=== PATIENT | male | born 1950 | race Caucasian/White ===

== ENCOUNTER 2017-12-22 10:09 | Inpatient (IN) | payer OTHER ==
[~2017-12-22] VITALS: Ht 175.3 cm; Wt 72.1 kg
--- NOTE | ~2017-12-22 | PATH ---
[facility] [place] [place] [address] PATHOLOGY RPT PROCEDURE Name: ISAÍAS HORNE Room #: 427-P DIS IN M.R.#: [id number] Admission: 12/22/17 Date of : 54 Discharge: 12/28/17 Report #: [id number] Path Case #: [id number] [facility] Accession Number: [id number] . 01 Material submitted: . GASTRIC BX R/O H PYLORI . 01 Clinical history: . Pre-op DX: Abnormal CT, nausea and vomiting Post-op DX: Gastritis R/O H. pylori . 02 Diagnosis: Gastric mucosa, gastric rule out H. pylori, endoscopic biopsy: - Mild reactive gastropathy. - Negative for intestinal metaplasia or atrophy. - Negative for Helicobacter pylori (properly controlled immunohistochemical stain performed). (IUV/db; 12/28/17) LBQ/12/28/2017 . 02 Electronically signed: . Lety Chacon MD, Pathologist NPI- [id number] . 01 Gross description: . Received in formalin labeled "Horne, Isaías, gastric BX R/O H. pylori," are two segments of reynolds soft tissue measuring 0.6 x 0.3 x 0.2 cm in aggregate dimensions and ranging from 0.4 to 0.6 cm in maximum dimension. The specimen is submitted entirely in cassette A1. (DAC; 12/27/2017) XDC/XDC . 02 Pathologist provided ICD-10: K31.9 . 02 CPT . 657119, C25103 Performed at: [address], [place], [place] [id number] MD Jaxon Parnell MD Phone: [phone] Performed at: [address] [id number] MD Lety Chacon MD Phone: [phone]
--- NOTE | ~2017-12-22 | 2DMMODE ---
[facility] [address] [place] [address] 2 D/M-MODE ECHOCARDIOGRAM Name: STEVE HORNE Room #: 427-P [facility] IN M.R.#: [id number] Admission: 12/22/17 Attend Phys: Kevin Golden MD Discharge: Date of : 54 Date of Service: 12/24/17 0955 Report #: [id number] THIS REPORT FOR: //name// APPROVED REPORT Study performed: 12/24/2017 08:02:04 EXAM: Comprehensive 2D, Doppler, and color-flow Echocardiogram Patient Location: Bedside Room #: 427 Status: routine BSA: 1.87 HR: 49 bpm BP: 136/79 mmHg Other Information Study Quality: Technically Difficult Technically limited study due to inability to position patient, lung disease. Indications Bradycardia Fatigue 2D Dimensions LVEF(%): 51.92 (>50%) IVSd: 11.05 (7-11mm) LVOT Diam: 24.34 (18-24mm) LVDd: 50.75 mm PWd: 10.70 (7-11mm) LVDs: 37.20 (25-40mm) Aortic Root: 38.00 mm IVC: 23.00 mm Floyd's LVEF: 51.92 % Volumes Left Atrial Volume (Systole) Single Plane 4CH: 63.89 mL Single Plane 2CH: 62.12 mL LA ESV Index: 41.00 mL/m2 Aortic Valve AoV Peak Thaddeus.: 1.90 m/s AO Peak Gr.: 14.38 mmHg LVOT Max P.62 mmHg LVOT Max V: 1.29 m/s VINAY Vmax: 3.15 cm2 Mitral Valve [facility] [address] [address] 2 D/M-MODE ECHOCARDIOGRAM Name: STEVE HORNE Room #: 427-P [facility] IN [facility].#: [id number] Admission: 12/22/17 Attend Phys: Kevin Golden MD Discharge: Date of : 54 Date of Service: 12/24/17 0955 Report #: [id number] E/A Ratio: 0.7 MV Decel. Time: 240.31 ms MV E Max Thaddeus.: 0.99 m/s MV A Thaddeus.: 1.39 m/s MV PHT: 69.69 ms IVRT: 117.65 ms Pulmonary Valve PV Peak Thaddeus.: 1.05 m/s PV Peak Gr.: 4.37 mmHg Pulmonary Vein P Vein S: 0.66 m/s P Vein A: 0.34 m/s P Vein D: 0.29 m/s P Vein A Dur.: 93.4 msec P Vein S/D Ratio: 2.28 Tricuspid Valve RAP Estimate: 10.00 mmHg Left Ventricle The left ventricle is normal size. There is normal left ventricular wall thickness. The left ventricular systolic function is normal. The left ventricular ejection fraction is within the normal range. LVEF is 55%. Mild diastolic dysfunction is present (impaired relaxation pattern). Right Ventricle The right ventricle is normal size. The right ventricular systolic function is normal. Atria Left atrium is mildly dilated. Right atrium is mildly dilated. Aortic Valve The aortic valve is not well visualized. No aortic regurgitation is present. There is no aortic valvular stenosis. Mitral Valve Mild mitral annular calcification. Mild mitral regurgitation. No evidence of mitral valve stenosis. Tricuspid Valve The tricuspid valve is normal in structure. Trace tricuspid regurgitation. Unable to assess PA pressure. Pulmonic Valve [facility] [address] [place] [address] 2 D/M-MODE ECHOCARDIOGRAM Name: STEVE HORNE Room #: 427-P ADM IN M.R.#: [id number] Admission: 12/22/17 Attend Phys: Kevin Golden MD Discharge: Date of : 54 Date of Service: 12/24/17 0955 Report #: [id number] Pulmonic valve is not well visualized. Great Vessels The aortic root is normal in size. IVC is dilated and collapses >50% with inspiration. Pericardium There is no pericardial effusion. <Conclusion> The left ventricle is normal size. There is normal left ventricular wall thickness. The left ventricular systolic function is normal. Mild diastolic dysfunction is present (impaired relaxation pattern). The right ventricle is normal size. Left atrium is mildly dilated. The aortic valve is not well visualized. There is no aortic valvular stenosis. Mild mitral regurgitation. Trace tricuspid regurgitation. <ELECTRONICALLY SIGNED> By: Christian Hearn MD 12/24/17954 4 4 Christian Hearn MD /INF
--- NOTE | ~2017-12-22 | HC ---
[facility] [place] [address] CONSULTATION Name: STEVE HORNE Room #: 427-P [facility] IN M.R.#: [id number] Admission: 12/22/17 Attend Phys: Kevin Golden MD Discharge: Date of : 54 Report #: [id number] THIS REPORT FOR: //name// CC: Ty Golden DATE OF SERVICE: 12/22/2017 REFERRING PROVIDER: Kevin Golden MD REASON FOR CONSULT: Diarrhea and abdominal pain with distention. HISTORY OF PRESENT ILLNESS: The patient is a 66-year-old male with a past history of paranoid schizophrenia and syncopal episodes, who presented with a 2-day history of severe diarrhea, nausea and abdominal distention. The patient was admitted and was found to have significant hyponatremia and a CT scan of the abdomen and pelvis showed gastric distention as well as significant constipation throughout the colon. For that reason, I was asked to evaluate. PAST MEDICAL HISTORY: Paranoid schizophrenia, tobacco abuse, insomnia, multiple syncopal episodes, and hypercholesterolemia. HOME MEDICATIONS: Omeprazole, clozapine, valproic acid, aspirin, vitamin D, atenolol, simvastatin, clomipramine. ALLERGIES: PROZAC, which causes a RASH. FAMILY HISTORY: Reviewed and noncontributory. SOCIAL HISTORY: The patient smokes 1 pack of cigarettes daily and has done so for several years. He also drinks alcohol weekly and denies illicit drug use. REVIEW OF SYSTEMS: GENERAL: The patient denies nocturnal fevers or chills. HEENT: No change in vision, change in hearing. NECK: No swelling or difficulty swallowing. HEART: No chest pain or palpitations. LUNGS: No cough or shortness of breath. ABDOMEN: Abdominal pain with nausea and diarrhea. GENITOURINARY: No dysuria or hematuria. ENDOCRINE: No polyuria or polydipsia. HEMATOLOGIC: No history of bleeding or easy bruising. EXTREMITIES: No history weakness or limited range of motion. NEUROLOGIC: No history of syncope or near syncopal episodes. SKIN AND INTEGUMENT: No history of abnormal lesions or moles. PSYCHIATRIC: No history of anxiety, but does have a diagnosis of paranoid [facility] [address] [place] [address] CONSULTATION Name: STEVE HORNE Room #: 427-P [facility] IN M.R.#: [id number] Admission: 12/22/17 Attend Phys: Kevin Golden MD Discharge: Date of : 54 Report #: [id number]. PHYSICAL EXAMINATION: VITAL SIGNS: Temperature 97.7, pulse 50, respirations 12, blood pressure 129/67. He is 5 feet 9 inches tall and weighs 159 pounds. GENERAL: He is somnolent, but arouses with stimulation, in no acute distress. HEENT: Normocephalic, atraumatic. Pupils equal, round, reactive to light. NECK: Supple, without lymphadenopathy. Trachea midline. HEART: Regular rate and rhythm. LUNGS: Clear to auscultation bilaterally. GASTROINTESTINAL: Abdomen is soft, moderately distended in the upper abdomen. No tenderness to palpation. He has hypoactive bowel sounds. No guarding, no rebound, no peritoneal signs or symptoms. GENITOURINARY: Normal external male genitalia. EXTREMITIES: No clubbing, cyanosis or edema. NEUROLOGIC: Cranial nerves 2-12 are grossly intact. PSYCHIATRIC: Normal mood and affect. SKIN AND INTEGUMENT: No abnormal lesions or moles. LABORATORY AND X-RAY DATA: CBC shows white blood cell count of 10.6 thousand; hemoglobin 12.7; platelets 160,000. Creatinine is 0.8. Liver function enzymes normal. Chest x-ray shows cardiomegaly. Urinalysis negative. Abdominal x-rays as well as CT scan of the abdomen and pelvis shows gastric distention as well as constipation throughout the colon. Lactic acid 0.7. Troponins negative. ASSESSMENT AND PLAN: A 66-year-old male with paranoid schizophrenia, on medication, who presents with a 2-day history of diarrhea and nausea, where he is found to be hyponatremic and imaging study shows significant constipation and gastric distention. The patient has already had an NG tube placed for decompression. I recommend continuation of bowel rest with NG tube decompression for his gastric distention. The patient will benefit from Gastroenterology consult for evaluation of proper bowel regimen as the patient may necessitate colonoscopy as well. At this time, there are no acute general surgical issues. I sincerely appreciate this consult. I will follow along while he is hospitalized and leave any further recommendations in the patient's chart as appropriate. <ELECTRONICALLY SIGNED> By: Rajesh Tejada MD, FACS 12/23/17 1429 0931 1002 Rajesh Tejada MD, FACS /nt
--- NOTE | ~2017-12-22 | HC ---
[facility] [place] [address] [place] [address] [place] [address] CONSULTATION Name: STEVE HORNE Room #: 427-P [facility] IN M.R.#: [id number] Admission: 12/22/17 Attend Phys: Kevin Golden MD Discharge: 12/28/17 Date of : 54 Report #: [id number] THIS REPORT FOR: //name// CC: Ty Golden DATE OF SERVICE: 12/27/2017 HISTORY OF PRESENT ILLNESS: The patient is a 66-year-old white male with a history of paranoid schizophrenia, lives on his own with sister closely involved. He was admitted with hyponatremia, gastroenteritis, urinary retention, bradycardia, and insomnia. Psychiatry had seen him. He apparently was taken off his prior clonazepam. He was noted to have nausea, vomiting, and was diagnosed with an ileus. He underwent an EGD on 12/26/2017 revealing mild gastritis and hiatal hernia. He had an NG tube in place, which has now been removed. He has been restarted on a diet. This is a regular diet. Given Ambien for his insomnia. He is noted to have generalized weakness with medical complexity and we are seeing him in rehabilitation medicine consultation. PAST MEDICAL HISTORY: Includes a prior history of syncope, which has been stable on atenolol. He has the paranoid schizophrenia as noted above. He has a history of BPH. Elevated cholesterol. History of some cigar smoking, noted to be 20 cigars a day. Apparently, he smokes, [employer] and he feels it helps take away some of his anxiety. Weekly alcohol use, a couple of beers when he goes out to eat. ALLERGIES: FLUOXETINE FROM PROZAC APPARENTLY CAUSING A RASH. SOCIAL HISTORY: Lives alone in an apartment one step, 12 inside. No gait aids, does his cooking and laundry, has an involved sister. REVIEW OF SYSTEMS: No current complaints of chest pain, shortness of breath or abdominal discomfort. He notes the nausea is improved. He is attempting to try to eat a regular diet. Did not offer any complaints of any focal extremity pain complaints. PHYSICAL EXAMINATION: GENERAL: A 66-year-old white male in no obvious distress. VITAL SIGNS: Last recorded temperature 97.9, pulse 60, respirations 20, blood pressure 132/83. He has male pattern frontal balding. NEUROLOGIC: He is alert. Decreased eye contact, follows basic commands without difficulty. Pleasant. Facies appeared symmetric. Functional range of motion of both upper extremities. Strength is grade 4-/5. DTRs are trace to 1. Lower extremities, no focal calf swelling. Functional range of motion with strength grade 4- to 3+/5. DTRs are trace to 1. He was only able to transfer sit to stand with mod assist and he was able to ambulate 3 feet and then a little [facility] [address] [place] [address] CONSULTATION Name: STEVE HORNE Room #: 427-P DIS IN M.R.#: [id number] Admission: 12/22/17 Attend Phys: Kevin Golden MD Discharge: 12/28/17 Date of : 54 Report #: [id number] longer distance with mod assist with a front-wheeled walker. Does have some decreased balance secondary to retropulsion with a posterior trunk lean. He does have some thoracic kyphosis noted. ASSESSMENT: A 66-year-old white male with the following problem list: 1. Medical complexity with generalized debilitation. 2. Ileus appears to be improving. NG tube is out. EGD shows hiatal hernia and mild gastritis. 3. Paranoid schizophrenia. 4. Benign prostatic hypertrophy with Flomax. 5. Hyperlipidemia. 6. Constipation. 7. Tobacco abuse, smokes at a minimum of 20 cigars per day ([employer]). PLAN: We are considering the patient for a possible acute [address] [place] [address] inpatient rehabilitation stay. We will have to see if he meets diagnostic criteria and functional criteria. At this point, we will be glad to follow along with you. <ELECTRONICALLY SIGNED> By: Leonard Tao MD 01/01/18 0820 1243 1838 Leonard Tao MD /nt
--- NOTE | ~2017-12-22 | EKG ---
[facility] [place] [address] [place] [address] ELECTROCARDIOGRAM REPORT Name: STEVE HORNE Room #: REG APRIL Olivares#: [id number] Admission: 12/22/17 Attend Phys: Discharge: Date of : 54 Report #: [id number] THIS REPORT FOR: //name// [facility] ED Test Date: 2017-12-22 Test Time: 10:20:52 Pat Name: STEVE HORNE Department: Room: Gender: Trust Manager: [facility] : 1950 Requested By: Stephanie Tompkins Order Number: [id number] MD: Yobany Howard Measurements Intervals [place] Rate: 49 P: 64 ID: [id number] QRS: 52 QRSD: 103 T: 69 QT: 420 QTc: 380 Interpretive Statements Sinus bradycardia Borderline T wave abnormalities Compared to ECG 07/19/2014 07:05:19 T-wave abnormality now present Electronically Signed On 12-22-2017 11:01:09 CDT by Yobany Howard [email or web address] <ELECTRONICALLY SIGNED> By: Yobany Howard MD, [facility] 12/22/17 1101 1020 1020 Yobany Howard MD, FACC /EPI
[~2017-12-22 10:09] MED LIST: ASPIR 8181 MG PO; CLOZAPINE ODT100 MG PO; CLOZAPINE100 M1 PO; CLOZARIL; CLOZARIL25 MG PO; OMEPRAZOLE10 MG PO; SIMVASTATIN40 MG PO; TENORMIN25 MG PO; VALPROIC ACID250 MG PO; VITAMIN D1000 UNI1 PO; VITAMIN D400 UNI1; ZOCOR 10 MG TAB10 M1
[2017-12-22 10:10] VITALS: BP 138/74
[2017-12-22 10:33] LABS: ABSOLUTE NEUTROPHILS 8.6 thou/uL (1.4-8.2); BASOPHILS 0.2 % (0.0-2.0); EOSINOPHILS 0.4 % (0.0-3.0); HEMATOCRIT 34.6 % (42.0-52.0); HEMOGLOBIN 12.7 gm/dL (14.0-18.0); LYMPHOCYTES 10.2 % (24.0-44.0); MCHC 36.8 g/dL (28.0-37.0); MCV 87.1 fL (80.0-100.0); MONOCYTES 7.4 % (1.0-8.0); PLATELET COUNT 160 thou/uL (150-400); POLYS 81.8 % (36.0-66.0); RBC 3.97 mil/uL (4.50-6.00); RDW 13.2 % (10.5-14.5); WBC 10.6 thou/uL (4.0-11.0)
[2017-12-22 10:40] LABS: ANION GAP 6 mmol/L (7-16); BUN 6 mg/dL (7-18); CALCIUM 8.8 mg/dL (8.5-10.1); CHLORIDE 93 mmol/L (98-107); CO2 26 mmol/L (21-32); CREATININE 0.8 mg/dL (0.7-1.3); GLUCOSE 126 mg/dL (74-106); POTASSIUM 3.9 mmol/L (3.5-5.1); SODIUM 125 mmol/L (136-145)
[2017-12-22] MEDS ORDERED: OMEPRAZOLE 20 M20 M1 PO (10:47)
[2017-12-22 10:49] LABS: ALBUMIN 3.7 g/dL (3.4-5.0); SGOT 19 U/L (15-37); SGPT 35 U/L (30-65); TOTAL BILIRUBIN 1.2 mg/dL (<0.1-1.0); TOTAL PROTEIN 6.5 g/dL (6.4-8.2); TROPONIN-I <0.06 ng/mL (<0.06)
[2017-12-22] MEDS ORDERED: CLOMIPRAMINE HC25 M2 PO (10:52)
[2017-12-22 10:53] VITALS: BP 129/67
[2017-12-22 10:55] LABS: URINE BILIRUBIN NEGATIVE (Negative); URINE BLOOD NEGATIVE (Negative); URINE CLARITY CLEAR; URINE COLOR YELLOW; URINE GLUCOSE-RANDOM* NEGATIVE (Negative); URINE KETONES NEGATIVE (Negative); URINE LEUKOCYTES-REFLEX NEGATIVE (Negative); URINE NITRITE-REFLEX NEGATIVE (Negative); URINE PROTEIN (DIPSTICK) NEGATIVE (Negative); URINE SPECIFIC GRAVITY <= 1.005 (1.005-1.035); URINE UROBILINOGEN 0.2 E.U./dl (0.2-1.0)
[2017-12-22 13:06] LABS: URINE CREATININE-RANDOM* <13 mg/dL; URINE SODIUM-RANDOM* 8 mmol/L
[2017-12-22 13:12] LABS: APTT 39.5 Seconds (24.5-32.8); PROTIME 10.6 Seconds (9.3-11.4)
[2017-12-22 19:48] LABS: CALCIUM 8.6 mg/dL (8.5-10.1); CREATININE 0.7 mg/dL (0.7-1.3); POTASSIUM 3.8 mmol/L (3.5-5.1)
[2017-12-22 20:30] VITALS: BP 115/59
[2017-12-23 04:30] VITALS: BP 128/62
[2017-12-23 06:31] LABS: HEMATOCRIT 33.7 % (42.0-52.0); HEMOGLOBIN 12.3 gm/dL (14.0-18.0); MCH 32.4 pg (26.0-34.0); MCHC 36.5 g/dL (28.0-37.0); MCV 88.7 fL (80.0-100.0); RBC 3.8 mil/uL (4.50-6.00); RDW 12.9 % (10.5-14.5); WBC 7.5 thou/uL (4.0-11.0)
[2017-12-23 06:43] LABS: CALCIUM 8.6 mg/dL (8.5-10.1); CREATININE 0.8 mg/dL (0.7-1.3); POTASSIUM 3.7 mmol/L (3.5-5.1)
[2017-12-23 09:45] VITALS: BP 125/70
[2017-12-23 16:45] VITALS: BP 140/71
[2017-12-23 21:00] VITALS: BP 128/75
[2017-12-24 03:54] VITALS: BP 136/79
[2017-12-24 05:50] LABS: ABSOLUTE NEUTROPHILS 8.8 thou/uL (1.4-8.2); BASOPHILS 0.3 % (0.0-2.0); EOSINOPHILS 0.3 % (0.0-3.0); HEMATOCRIT 35.3 % (42.0-52.0); HEMOGLOBIN 12.5 gm/dL (14.0-18.0); LYMPHOCYTES 9.3 % (24.0-44.0); MCH 31.9 pg (26.0-34.0); MCHC 35.5 g/dL (28.0-37.0); MCV 89.9 fL (80.0-100.0); MONOCYTES 11.3 % (1.0-8.0); PLATELET COUNT 140 thou/uL (150-400); POLYS 78.8 % (36.0-66.0); RBC 3.93 mil/uL (4.50-6.00); RDW 13.4 % (10.5-14.5); WBC 11.2 thou/uL (4.0-11.0)
[2017-12-24 06:00] LABS: CALCIUM 8.7 mg/dL (8.5-10.1); CREATININE 0.8 mg/dL (0.7-1.3); MAGNESIUM 2.1 mg/dL (1.8-2.4); POTASSIUM 3.5 mmol/L (3.5-5.1)
[2017-12-24 06:31] LABS: AMYLASE 39 U/L (25-115); FOLIC ACID 11.7 ng/mL (8.6-58.9); LIPASE 203 U/L (73-393); TSH 3.643 uIU/mL (0.358-3.740)
[2017-12-24 07:47] VITALS: BP 146/70
[2017-12-24 13:08] LABS: URINE OSMOLALITY* 55 (())
[2017-12-24 16:18] VITALS: BP 141/79
[2017-12-24 20:00] VITALS: BP 149/80
[2017-12-25 04:11] VITALS: BP 130/63
[2017-12-25 06:07] LABS: HEMATOCRIT 31.4 % (42.0-52.0); HEMOGLOBIN 11.4 gm/dL (14.0-18.0); MCH 32.6 pg (26.0-34.0); MCHC 36.4 g/dL (28.0-37.0); MCV 89.5 fL (80.0-100.0); PLATELET COUNT 123 thou/uL (150-400); WBC 8.8 thou/uL (4.0-11.0)
[2017-12-25 06:25] LABS: ALBUMIN 2.9 g/dL (3.4-5.0); CALCIUM 8.4 mg/dL (8.5-10.1); CREATININE 0.8 mg/dL (0.7-1.3); MAGNESIUM 1.9 mg/dL (1.8-2.4); POTASSIUM 3.8 mmol/L (3.5-5.1)
[2017-12-25 08:44] LABS: ABSOLUTE NEUTROPHILS 6.1 thou/uL (1.4-8.2); PLATELET ESTIMATE NORMAL
[2017-12-25 09:12] VITALS: BP 123/64
[2017-12-25 11:11] LABS: UREA NITROGEN-RANDM URINE 62 mg/dL (Not Estab.)
[2017-12-25 15:22] VITALS: BP 132/61
[2017-12-25 20:00] VITALS: BP 118/64
[2017-12-26 04:31] VITALS: BP 134/71
[2017-12-26 04:33] LABS: HEMATOCRIT 31.4 % (42.0-52.0); HEMOGLOBIN 11.4 gm/dL (14.0-18.0); MCH 32.2 pg (26.0-34.0); MCHC 36.2 g/dL (28.0-37.0); MCV 89.2 fL (80.0-100.0); PLATELET COUNT 116 thou/uL (150-400); RBC 3.52 mil/uL (4.50-6.00); RDW 13.2 % (10.5-14.5); WBC 5.1 thou/uL (4.0-11.0)
[2017-12-26 04:45] LABS: ALBUMIN 2.8 g/dL (3.4-5.0); CALCIUM 8.1 mg/dL (8.5-10.1); CREATININE 0.8 mg/dL (0.7-1.3); MAGNESIUM 1.9 mg/dL (1.8-2.4); POTASSIUM 4.1 mmol/L (3.5-5.1); TOTAL BILIRUBIN 0.8 mg/dL (<0.1-1.0); TOTAL PROTEIN 5.9 g/dL (6.4-8.2)
[2017-12-26 07:18] LABS: ABSOLUTE NEUTROPHILS 3.3 thou/uL (1.4-8.2); METAMYELOCYTES 2 %
[2017-12-26 08:04] VITALS: BP 124/62
[2017-12-26 20:00] VITALS: BP 128/79
[2017-12-27 04:00] VITALS: BP 135/82
[2017-12-27 05:44] LABS: HEMATOCRIT 33.9 % (42.0-52.0); HEMOGLOBIN 12.1 gm/dL (14.0-18.0); MCH 31.8 pg (26.0-34.0); MCHC 35.9 g/dL (28.0-37.0); MCV 88.5 fL (80.0-100.0); PLATELET COUNT 137 thou/uL (150-400); RBC 3.83 mil/uL (4.50-6.00); RDW 12.9 % (10.5-14.5); WBC 8.1 thou/uL (4.0-11.0)
[2017-12-27 06:10] LABS: CALCIUM 8.3 mg/dL (8.5-10.1); CREATININE 0.8 mg/dL (0.7-1.3); POTASSIUM 3.8 mmol/L (3.5-5.1)
[2017-12-27 07:50] VITALS: BP 132/83
[2017-12-27 08:37] LABS: ABSOLUTE NEUTROPHILS 4.9 thou/uL (1.4-8.2); PLATELET ESTIMATE NORMAL
[2017-12-27 20:00] VITALS: BP 104/66
[2017-12-28 04:00] VITALS: BP 113/71
[2017-12-28] MEDS ORDERED: PANTOPRAZOLE SO40 M1 PO (16:43)
[2017-12-28] MEDS ORDERED: BISAC-EVAC10 MG RECTAL (16:43)
[2017-12-28] MEDS ORDERED: MELATONIN5 M1 PO (16:43)
[2017-12-28] MEDS ORDERED: MIRALAX17 GM PO (16:43)
[2017-12-28] MEDS ORDERED: HOME MEDICATION PO (16:43)
[2017-12-28] MEDS ORDERED: FLOMAX0.4 MG PO (16:43)
[2017-12-28] MEDS ORDERED: OLANZAPINE ODT5 MG PO (16:43)
[2017-12-28] MEDS ORDERED: ONDANSETRON HCL4 M1 IV PUSH (16:43)
[2017-12-28] MEDS ORDERED: COLACE 100 MG100 MG PO (16:43)
== END 2017-12-28 17:49 | DRG 388 ==
LOC: ER 10:09 → EROBS 11:35 → 4E 11:35 → ER 12:14 → 4E 12:14 → ENTRNSPT 12-28 17:13 → 4E 12-28 17:49
PROVIDERS: Hospitalist; Internal Medicine; Physician Assistant
PROC: 0D9680Z Drainage of Stomach with Drainage Device, Via Natural or Artificial Opening Endoscopic (ICD-10-PCS; principal; 2017-12-22)
PROC: 0DB68ZX Excision of Stomach, Via Natural or Artificial Opening Endoscopic, Diagnostic (ICD-10-PCS; 2017-12-26)
DX: K56.7 Ileus, unspecified (principal); E43 Unspecified severe protein-calorie malnutrition; E87.1 Hypo-osmolality and hyponatremia; F20.0 Paranoid schizophrenia; K29.60 Other gastritis without bleeding; K52.9 Noninfective gastroenteritis and colitis, unspecified; E78.00 Pure hypercholesterolemia, unspecified; R53.81 Other malaise; R35.0 Frequency of micturition; F17.210 Nicotine dependence, cigarettes, uncomplicated; K31.89 Other diseases of stomach and duodenum; E86.0 Dehydration; R33.9 Retention of urine, unspecified; R00.1 Bradycardia, unspecified; G47.00 Insomnia, unspecified; K59.09 Other constipation; E78.5 Hyperlipidemia, unspecified; D50.9 Iron deficiency anemia, unspecified; Z60.2 Problems related to living alone; N40.1 Benign prostatic hyperplasia with lower urinary tract symptoms; R63.4 Abnormal weight loss; K44.9 Diaphragmatic hernia without obstruction or gangrene; R53.83 Other fatigue; Z88.8 Allergy status to other drugs, medicaments and biological substances; Z79.899 Other long term (current) drug therapy; Z86.010 Personal history of colon polyps; Z68.23 Body mass index [BMI] 23.0-23.9, adult
CPT/HCPCS: 10183; 62110; 62900; 70005

== ENCOUNTER 2017-12-28 14:41 | Inpatient (IN) | payer OTHER ==
[~2017-12-28] VITALS: Ht 175.3 cm; Wt 79.2 kg
--- NOTE | ~2017-12-28 | H ---
[facility] [place] [address] HISTORY AND PHYSICAL Name: STEVE HORNE Room #: 512-P [facility] IN M.R.#: [id number] Admission: 12/28/17 Attend Phys: Leonard Tao MD Discharge: 01/03/18 Date of : 54 Report #: [id number] THIS REPORT FOR: //name// CC: Leonard Garrettlap DATE OF SERVICE: 12/28/2017 HISTORY AND PHYSICAL/POSTADMISSION PHYSICIAN EVALUATION HISTORY OF PRESENT ILLNESS: This is a 67-year-old white male who was originally admitted to [facility] on 12/22/2017 with hyponatremia, gastroenteritis, urinary retention and bradycardia. The patient has a prior history of paranoid schizophrenia. He also was noted to have insomnia and was placed on Ambien. Psychiatry has been involved and his clozapine has been reduced. He had problems with nausea and vomiting and underwent an EGD diagnosed with mild gastritis and hiatal hernia on 12/26/2017. He was noted to have ileus, which has improved. Urology has been involved with his urinary retention and he is on Flomax and they are recommending a voiding trial. Bowels improved and is more ambulatory. He has had a significant decline functionally from his premorbid status and has now been admitted for acute in-hospital inpatient rehabilitation. PAST MEDICAL HISTORY: Includes paranoid schizophrenia, diagnosed in 1980, history of syncope, noted to be improved/stable on atenolol, history of cigar smoking, elevated cholesterol. ALLERGIES: PROZAC/FLUOXETINE. HABITS: Noted to smoke 20 cigars a day. Apparently it helps with his anxiety. He smokes [employer] per report. He will have occasional beers when he goes out to eat as far as alcohol usage. SOCIAL HISTORY: Lives alone in an apartment one step, 12 inside. Did not utilize assistive devices premorbidly. He has an involved sister. REVIEW OF SYSTEMS: No complaints of chest pain, shortness of breath and abdominal discomfort. PHYSICAL EXAMINATION: GENERAL: This is a 67-year-old white male in no obvious distress. VITAL SIGNS: Last recorded temperature 36.8, pulse 71, respirations 18 and blood pressure 115/68. Sleepy, but does arouse. HEENT: Facies appeared symmetric. The patient was seen earlier. CHEST: Sounded clear to auscultation. CARDIOVASCULAR: Regular rate and rhythm. [facility] [address] [place] [address] HISTORY AND PHYSICAL Name: STEVE HORNE Room #: 512-P [facility] IN M.R.#: [id number] Admission: 12/28/17 Attend Phys: Leonard Tao MD Discharge: 01/03/18 Date of : 54 Report #: [id number] ABDOMEN: Bowel sounds positive, nontender. GENITOURINARY AND RECTAL: He does have the indwelling Ibrahim catheter. EXTREMITIES: Functional range of motion of the upper extremities. Strength is grade 4-/5. DTRs are trace to 1. Lower extremities, no focal calf swelling, functional range of motion, strength is grade 3+ to 4-/5. DTRs are trace to 1. Bed mobility has been standby assistance; transfers, contact to min assist and he has been ambulating a short distance. He needs assistance. ASSESSMENT: This is a 67-year-old white male with the following problem list: 1. Medical complexity with generalized debilitation. 2. Nausea, vomiting, diarrhea improved with hiatal hernia, mild gastritis and noted colonic ileus. 3. Paranoid schizophrenia. Psychiatry involved. 4. Urinary retention. Has Ibrahim catheter as he is starting to do better with functional mobility would like to remove catheter as was recommended by Urology for a trial. 5. Hyperlipidemia. 6. Tobacco use minimum of 20 cigars a day. PLAN: The patient is admitted for acute in-hospital inpatient rehabilitation. From a postadmission physician evaluation perspective, there are no relevant changes since the preadmission screening. Please see the above review of prior and current medical and functional conditions and comorbidities. Please see the patient's previous and current functional status. As far as risk of complications, the patient has multiple medical comorbidities as noted above. Initial plan of care involves the interdisciplinary acute inpatient rehabilitation program with the goal of maximizing the patient's functional independence, so that he can hopefully return back to his prior living situation. Measurable functional goals would be for the patient to become modified independent with transfers, mobility and ADLs and hopefully return back to his prior living situation. Prognosis is reasonably good with estimated length of stay probably at least 7-10 days. Potential barriers would include decreased functional status and multiple comorbidities. The patient meets diagnostic criteria for an acute in-hospital inpatient rehabilitation stay. He meets medical necessity criteria. We will have the multiple documentum consultant physicians continue to follow. He does have the tolerance for therapies and has appropriate discharge goals back to the home setting. <ELECTRONICALLY SIGNED> By: Leonard Tao MD 01/08/18 1020 0924 1019 Leonard Tao MD /nt
--- NOTE | ~2017-12-28 | PLAN ---
[facility] [place] [address] REHAB UNIT PLAN OF CARE Name: STEVE HORNE Room #: 512-P DIS IN M.R.#: [id number] Admission: 12/28/17 Attend Phys: Leonard Tao MD Discharge: 01/03/18 Date of : 54 Report #: [id number] THIS REPORT FOR: //name// CC: Leonard Driscoll DATE OF SERVICE: 12/29/2017 PLAN: The overall plan of care is based on the preadmission screen, post-admission physician evaluation and information garnered from therapy assessments. He is starting to ambulate short distances 100 feet without a gait aid with the assistance and transfers or contact guard. 1. Estimated length of stay is probably 7-10 days, possibly longer if needed. 2. Medical prognosis is reasonably good. 3. Anticipated interventions includes the interdisciplinary acute inpatient rehabilitation program with PT and OT and speech therapy working with him, rehab nursing assisting regarding medication management, skin care prophylaxis, bowel and bladder issues and nursing education. Case management is involved as well as the interdisciplinary acute rehabilitation team. The [employer] consultant physicians are to continue following. 4. Anticipated functional outcomes would be for the patient to become modified independent with transfers, mobility and ADLs, improved in terms to ideally be able to get that catheter out, ADL independence, improved cognition, so he can return back to the home setting. 5. Discharge destination would be back to his home setting. He does have an involved sister. 6. Expected therapy by discipline includes PT, OT and speech 1 hour per day each five days a week of the duration of the acute inpatient rehabilitation stay. Pending how he does, we may be able to decrease some of the speech therapy in favor of more PT and OT. <ELECTRONICALLY SIGNED> By: Leonard Tao MD 01/08/18 1020 0928 1120 Leonard Tao MD /nt
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
[~2017-12-28 14:41] MED LIST changes: +CLOMIPRAMINE HC25 M2 PO; +OMEPRAZOLE 20 M20 M1 PO
[2017-12-28] MEDS ORDERED: MIRALAX17 GM PO (16:43)
[2017-12-28] MEDS ORDERED: PANTOPRAZOLE SO40 M1 PO (16:43)
[2017-12-28] MEDS ORDERED: HOME MEDICATION PO (16:43)
[2017-12-28] MEDS ORDERED: ONDANSETRON HCL4 M1 IV PUSH (16:43)
[2017-12-28] MEDS ORDERED: FLOMAX0.4 MG PO (16:43)
[2017-12-28] MEDS ORDERED: MELATONIN5 M1 PO (16:43)
[2017-12-28] MEDS ORDERED: BISAC-EVAC10 MG RECTAL (16:43)
[2017-12-28] MEDS ORDERED: COLACE 100 MG100 MG PO (16:43)
[2017-12-28] MEDS ORDERED: OLANZAPINE ODT5 MG PO (16:43)
[2017-12-28 20:04] VITALS: BP 115/68
[2017-12-29 04:23] LABS: HEMATOCRIT 31.2 % (42.0-52.0); HEMOGLOBIN 11.2 gm/dL (14.0-18.0); MCH 31.9 pg (26.0-34.0); MCHC 35.9 g/dL (28.0-37.0); MCV 88.9 fL (80.0-100.0); RBC 3.51 mil/uL (4.50-6.00); RDW 12.5 % (10.5-14.5); WBC 5.9 thou/uL (4.0-11.0)
[2017-12-29 04:36] LABS: CALCIUM 8.3 mg/dL (8.5-10.1); CREATININE 0.8 mg/dL (0.7-1.3); POTASSIUM 3.5 mmol/L (3.5-5.1)
[2017-12-29 08:25] VITALS: BP 120/78
[2017-12-29 20:26] VITALS: BP 113/68
[2017-12-30 08:00] VITALS: BP 124/78
[2017-12-30 20:00] VITALS: BP 150/102
[2017-12-30 20:40] VITALS: BP 118/96
[2017-12-31 09:24] VITALS: BP 125/70
[2017-12-31 19:35] VITALS: BP 124/71
[2018-01-01 08:00] VITALS: BP 120/65
[2018-01-01 19:20] VITALS: BP 131/84
[2018-01-02 08:29] VITALS: BP 124/72
[2018-01-02 08:30] VITALS: BP 124/72
[2018-01-02 20:18] VITALS: BP 133/87
[2018-01-03 08:05] VITALS: BP 140/82
[2018-01-03] MEDS ORDERED: FLOMAX0.4 MG PO (08:53)
[2018-01-03] MEDS ORDERED: HYDROXYZINE HCL10 M2 PO (08:53)
[2018-01-03] MEDS ORDERED: COLACE 100 MG100 MG PO ×2 (08:53→11:18)
[2018-01-03] MEDS ORDERED: CLOZAPINE100 MG PO ×2 (09:43→09:47)
[2018-01-03] MEDS ORDERED: SIMVASTATIN40 MG PO ×2 (09:43→09:47)
[2018-01-03] MEDS ORDERED: MELATONIN5 M1 PO (09:43)
[2018-01-03] MEDS ORDERED: SENNA8.6 MG PO (11:18)
[2018-01-03 11:37] VITALS: BP 140/82
== END 2018-01-03 11:58 | disposition home health service (06) | DRG 947 ==
LOC: ENTRNSPT 01-03 11:49 → EDTRNSPTSTS 01-03 11:53
PROVIDERS: Nurse Practitioner Family
DX: R53.81 Other malaise (principal); E43 Unspecified severe protein-calorie malnutrition; F20.0 Paranoid schizophrenia; K56.7 Ileus, unspecified; E87.1 Hypo-osmolality and hyponatremia; K29.70 Gastritis, unspecified, without bleeding; E78.5 Hyperlipidemia, unspecified; F17.210 Nicotine dependence, cigarettes, uncomplicated; R33.9 Retention of urine, unspecified; N40.1 Benign prostatic hyperplasia with lower urinary tract symptoms; K59.00 Constipation, unspecified; G47.00 Insomnia, unspecified; K52.9 Noninfective gastroenteritis and colitis, unspecified; R41.9 Unspecified symptoms and signs involving cognitive functions and awareness; F17.290 Nicotine dependence, other tobacco product, uncomplicated; E78.00 Pure hypercholesterolemia, unspecified; Z60.2 Problems related to living alone; K44.9 Diaphragmatic hernia without obstruction or gangrene; F41.9 Anxiety disorder, unspecified; Z88.8 Allergy status to other drugs, medicaments and biological substances; Z68.25 Body mass index [BMI] 25.0-25.9, adult
CPT/HCPCS: 10112